=== PATIENT | male | born 1970 | race Hispanic/Latino ===

== ENCOUNTER 2019-05-14 22:45 | Emergency (ER) | payer OTHER ==
[~2019-05-14] VITALS: Ht 167.6 cm; Wt 89.4 kg
[~2019-05-14 22:45] MED LIST: ACET-685 PO; ASPI-484 PO; BACL10TA PO; CEPH-350 PO; DOCU100T6 PO; GABA300C10 PO; GLIP10TA13 PO; GLIP5TAB22 PO; HYDR-3101 PO; HYDR50CA PO; PANT40TA5 PO; SITA1TAB7 PO; SULF1TAB24 PO
[2019-05-14 23:06] VITALS: BP 121/70
[2019-05-14 23:09] VITALS: BP 121/70
--- NOTE | 2019-05-14 23:13 | ER.PDOC ---
General Chief Complaint: Extremities Stated Complaint: LEG PAIN Time seen by MD: 22:50 Source: patient, family Exam Limitations: language barrier History of Present Illness Initial Comments patient has a history of cellulitis in past and noticed some redness on the rle for the last two hours, he came to er because he thinks he has cellulitis again and wanted to come in quickly. no fever or chills, no trauma, patient is a diabetic. Timing/Duration: 1-3 hours Severity: mild Location: RLE Identified Cause: possibly Prior symptoms/Treatment: Similar symptoms previous Allergies: Coded Allergies: No Known Allergies (Unverified , 06/26/17) Home Meds Active Scripts Sulfamethoxazole/Trimethoprim (BACTRIM DS TABLET) 1 Each Tablet, 1 EACH PO BID, #16 TABLET 0 Refills Prov:ADRIANA JOSEPH MD 01/09/18 Reported Medications Pantoprazole Sodium (PANTOPRAZOLE SODIUM) 40 Mg Tablet.dr, 1 TAB PO DAILY, #30 TAB 3 Refills 01/06/18 Aspirin (ASPIR 81) 81 Mg Tablet.dr, 1 TAB PO DAILY, #30 TAB 5 Refills 01/06/18 Docusate Sodium (STOOL SOFTENER) 100 Mg Tablet, 100 MG PO DAILY24, TABLET 01/06/18 Hydroxyzine Pamoate (VISTARIL) 50 Mg Capsule, 1 CAP PO TID, #90 CAP 2 Refills 01/06/18 Hydrocodone Bit/Acetaminophen (NORCO 7.5-325) 1 Each Tablet, 1 EACH PO Q4H PRN for PAIN, #30 TAB 01/06/18 Glipizide (GLIPIZIDE) 10 Mg Tablet, 1 TAB PO BID, #60 TAB 5 Refills 01/06/18 Gabapentin (GABAPENTIN) 300 Mg Capsule, 300 MG PO TID, CAPSULE 06/27/17 Baclofen (BACLOFEN) 10 Mg Tablet, 10 MG PO Q8H PRN for MUSCLE SPASM, TABLET 06/27/17 Past Medical History Medical History: diabetes Surgical History: knee, shoulder Social History Smoking: non-smoker Alcohol Use: none Drug Use: none Constitutional: denies fever EENTM: denies ear pain Respiratory: denies cough Cardiovascular: denies chest pain Gastrointestinal: denies abdominal pain Genitourinary: denies flank pain Musculoskeletal: denies back pain Skin: rash Psychiatric/Neurological: denies headache Endocrine: denies increased thrist Hematologic/Lymphatic: denies blood clots Physical Exam General Appearance: alert, no distress Skin: warm/dry, with erythema Location: RLE With: warmth Extremities: other EENT: eyes nml inspection Neck: trachea midline, no swelling Respiratory: no resp. distress, breath sounds nml CVS: reg. rate & rhythm, heart sounds nml Abdomen: non-tender NEURO/PSYCH: CN's nml as tested, motor nml, sensation nml Comments small patch of erythema on the rlw distal ant, area is approx 3 by 4 inches. no crepitus no fluctuance Results/Orders Results/Orders Orders - MARY CARMEN YUN MD Cbc With Auto Diff (05/14/19 23:08) Comprehensive Metabolic Panel (05/14/19 23:08) Saline Lock (05/14/19 23:08) Blood Culture (05/14/19 23:08) Xr Tib/Fib Rt (05/14/19 23:08) Clindamycin Phosphate/D5w (Cleocin 900 M (05/15/19 06:00) Clindamycin Phosphate/D5w (Cleocin 600 M (05/15/19 06:00) Clindamycin Phosphate/D5w (Cleocin 600 M (05/14/19 23:20) Vital Signs Date Time Temp Pulse Resp B/P (MAP) Pulse Ox O2 Delivery O2 Flow Rate FiO2 05/14/19 23:09 98.4 74 16 05/14/19 23:06 98.4 74 16 121/70 (87) 98 Room Air 05/14/19 23:06 98.4 74 16 98 Room Air Administered Medications Medications (Trade) Dose Ordered Sig/Fatou Route PRN Reason Start Time Stop Time Status Last Admin Dose Admin Clindamycin Phosphate 50 ml @ 50 mls/hr Q8 IV 05/15/19 06:00 06/14/19 05:59 05/14/19 23:28 50 MLS/HR Laboratory Tests Test 05/14/19 23:20 White Blood Count 9.0 10^3/uL (4.5-11.0) Red Blood Count 5.20 10^6/uL (4.50-5.90) Hemoglobin 15.2 g/dL (13.9-16.3) Hematocrit 45.3 % (37.0-53.0) Mean Corpuscular Volume 87.1 fL (78-100) Mean Corpuscular Hemoglobin 29.2 pg (26-34) Mean Corpuscular Hemoglobin Concent 33.6 g/dL (33-37) Red Cell Distribution Width 13.9 % (11.5-14.5) Platelet Count 195 10^3/uL (150-400) Mean Platelet Volume 10.7 fL (7.8-11.0) Neutrophils (%) (Auto) 50.9 % (41.0-85.0) Lymphocytes (%) (Auto) 37.8 % (24.0-44.0) Monocytes (%) (Auto) 8.0 % (5.0-12.0) Neutrophils # (Auto) 4.6 10^3/uL (1.8-7.7) Lymphocytes # (Auto) 3.4 10^3/uL (1.0-4.8) Monocytes # (Auto) 0.7 10^3/uL (0.3-0.8) Absolute Immature Granulocyte (auto 0.02 10^3 u/L (0-2) Immature Granulocytes % 0.20 % (0.00-0.50) Eosinophils % 2.7 % (0.0-5.0) Basophils % 0.4 % (0.0-0.2) H Basophils # 0.0 10^3/uL (0.0-0.1) Eosinophil Count 0.2 10^3/uL (0.0-0.2) Sodium Level 142 mmol/L (132-145) Potassium Level 4.1 mmol/L (3.6-5.2) Chloride Level 105.0 mmol/L (96-109) Carbon Dioxide Level 25.2 mmol/L (20.0-32) Anion Gap 15.9 Blood Urea Nitrogen 18 mg/dL (7-18) Creatinine 1.08 mg/dL (0.59-1.40) Estimated GFR () 88.7 (>/=60) BUN/Creatinine Ratio 16.0 Glucose Level 134 mg/dL (70-110) H Calcium Level 9.0 mg/dL (8.4-10.5) Total Bilirubin 0.3 mg/dL (0.2-1.0) Aspartate Amino Transferase (AST) 23 U/L (0-35) Alanine Aminotransferase (ALT) 23 U/L (12-78) Alkaline Phosphatase 84 U/L (50-136) Total Protein 7.3 g/dL (6.4-8.2) Albumin 3.8 g/dL (3.4-5.0) Globulin 3.5 Departure Time of Disposition: 00:05 Disposition: 01 HOME, SELF-CARE Impression: Primary Impression: Cellulitis Condition: Stable Patient Instructions: Cellulitis Referrals: PCP,UNKNOWN (PCP) PRIMARY CARE PROVIDER ADRIANA JOSEPH MD Additional Instructions: see your primary care doctor or referral doctor for evaluation and for blood culture results. Duration or Time Spent with Pa: 15 MARY CARMEN YUN MD May 14, 2019 23:13
[2019-05-14] MEDS ORDERED: CLEOCIN 600 MG-D5W-GALAXY 50 ML IV ONE (23:20)
[2019-05-14 23:27] LABS: BASOPHIL % 0.4 % (0.0-0.2); EOSINOPHIL # 0.2 10^3/uL (0.0-0.2); EOSINOPHIL % 2.7 % (0.0-5.0); HEMOGLOBIN 15.2 g/dL (13.9-16.3); LYMPHOCYTES # 3.4 10^3/uL (1.0-4.8); LYMPHOCYTES % 37.8 % (24.0-44.0); MEAN CELL HGB 29.2 pg (26-34); MEAN CELL HGB CONCENTRATION 33.6 g/dL (33-37); MEAN CORP VOLUME 87.1 fL (78-100); MEAN PLATELET VOLUME 10.7 fL (7.8-11.0); MONOCYTES # 0.7 10^3/uL (0.3-0.8); NEUTROPHIL # 4.6 10^3/uL (1.8-7.7); NEUTROPHILS % 50.9 % (41.0-85.0); RED CELL DISTRIBUTION WIDTH 13.9 % (11.5-14.5)
[2019-05-14 23:45] LABS: CARBON DIOXIDE 25.2 mmol/L (20.0-32)
--- NOTE | 2019-05-15 00:03 | DIREP ---
PROCEDURE:XRAY TIB & FIB 2 VW-RT COMPARISON:None. INDICATIONS:cellulitis of rle FINDINGS: BONES:No acute fracture. JOINTS:The knee and ankle appear intact. Mild degenerative changes of the ankle. SOFT TISSUES:Scattered surgical clips within the soft tissues along the medial aspect of the proximal calf. Apparent subcutaneous edema about the mid to distal calf. OTHER:No additional findings. CONCLUSION: 1. No acute osseous abnormality. 2. Apparent subcutaneous edema about the mid to distal calf may reflect reported cellulitis. Dictated by: Ryne Munoz M.D. On 05/15/2019 at 00:00 AM
--- NOTE | 2019-05-15 00:13 | NUR ---
IV DC'D TIP INTACT, NO BLEEDING
[2019-05-15 00:15] VITALS: BP 127/74
[2019-05-15] MEDS ORDERED: CLEOCIN 900 MG-D5W-GALAXY 50 ML IV SCH (06:00)
[2019-05-15] MEDS ORDERED: CLEOCIN 600 MG-D5W-GALAXY 50 ML IV SCH (06:00)
== END 2019-05-15 00:17 | disposition home or self-care (01) ==
LOC: ER 22:45
DX: L03.115 Cellulitis of right lower limb (principal); E11.9 Type 2 diabetes mellitus without complications; Z79.82 Long term (current) use of aspirin; Z79.84 Long term (current) use of oral hypoglycemic drugs; Z79.899 Other long term (current) drug therapy; Z79.2 Long term (current) use of antibiotics
CPT/HCPCS: 36415; 80053; 85025; 87040; 96365; 99285; 73590-RT; J3490

== ENCOUNTER 2020-02-28 03:17 | Inpatient (IN) | payer OTHER ==
[2020-02-28] VITALS (7 sets, daily range): BP systolic 100–122; BP diastolic 58–74
[~2020-02-28] VITALS: Ht 167.6 cm; Wt 96.4 kg
[~2020-02-28 03:17] MED LIST changes: -ASPI-484 PO; +ASPI-485 PO; -PANT40TA5 PO; +PANT40TA6 PO
--- NOTE | 2020-02-28 03:41 | ER.PDOC ---
General Chief Complaint: Requesting Medical Care Stated Complaint: LEG INFECTION Time seen by MD: 03:25 Source: patient Exam Limitations: language barrier History of Present Illness Initial Comments patient has had multiple infection in extremities after previous knee surgery in 2018, patient presents with redness and pain in the medical tibial area since midnight today. Timing/Duration: 4-6 hours Location: LLE Quality: painful Allergies: Coded Allergies: No Known Allergies (Unverified , 06/26/17) Home Meds Reported Medications Insuln Asp Prt/Insulin Aspart (NOVOLOG MIX 70-30 VIAL) 100 Unit/1 Ml Vial, 20 UNIT SQ BID, VIAL 02/28/20 Lisinopril (LISINOPRIL) 2.5 Mg Tablet, 1 TAB PO DAILY, #30 TAB 5 Refills 02/28/20 Pantoprazole Sodium (PANTOPRAZOLE SODIUM) 40 Mg Tablet.dr, 1 TAB PO DAILY, #30 TAB 3 Refills 01/06/18 Aspirin (ASPIR 81) 81 Mg Tablet.dr, 1 TAB PO DAILY, #30 TAB 5 Refills 01/06/18 Docusate Sodium (STOOL SOFTENER) 100 Mg Tablet, 100 MG PO DAILY24, TABLET 01/06/18 Hydrocodone Bit/Acetaminophen (NORCO 7.5-325) 1 Each Tablet, 1 EACH PO Q4H PRN for PAIN, #30 TAB 01/06/18 Gabapentin (GABAPENTIN) 300 Mg Capsule, 300 MG PO TID, CAPSULE 06/27/17 Baclofen (BACLOFEN) 10 Mg Tablet, 10 MG PO Q8H PRN for MUSCLE SPASM, TABLET 06/27/17 Discontinued Reported Medications Hydroxyzine Pamoate (VISTARIL) 50 Mg Capsule, 1 CAP PO TID, #90 CAP 2 Refills 01/06/18 Glipizide (GLIPIZIDE) 10 Mg Tablet, 1 TAB PO BID, #60 TAB 5 Refills 01/06/18 Discontinued Scripts Sulfamethoxazole/Trimethoprim (BACTRIM DS TABLET) 1 Each Tablet, 1 EACH PO BID, #16 TABLET 0 Refills Prov:ADRIANA JOSEPH MD 01/09/18 Past Medical History Medical History: diabetes Surgical History: knee, shoulder Social History Drug Use: none Constitutional: denies chills; fever Respiratory: denies cough Cardiovascular: denies chest pain Gastrointestinal: denies abdominal pain Genitourinary: denies pain Musculoskeletal: denies neck pain Skin: denies rash Physical Exam General Appearance: alert, no distress Skin: with erythema Location: LLE Character: macular With: warmth, tenderness Extremities: other EENT: eyes nml inspection Neck: trachea midline Respiratory: no resp. distress, breath sounds nml CVS: reg. rate & rhythm, heart sounds nml Abdomen: non-tender Rectal: non-tender, rectal tenderness NEURO/PSYCH: oriented x 3, CN's nml as tested, motor nml, sensation nml Comments area of erythema on the left lower extremity medial tibial area in the soft tissue that is approx 4 inches by 10 inches in size with increased warmth to the area, no crepitus or fluctuance of the area good distal pulses, calf circumference grossly symmetric. Results/Orders Results/Orders Orders - MARY CARMEN YUN MD Cbc With Auto Diff (02/28/20 03:35) Comprehensive Metabolic Panel (02/28/20 03:35) Ekg-Routine (02/28/20 03:35) Saline Lock (02/28/20 03:35) Blood Culture (02/28/20 03:35) Lactic Acid(Ml) (02/28/20 03:35) Piperacillin Sodium/Tazobactam (Zosyn 4. (02/28/20 04:00) 0.9 % Sodium Chloride (Ns 1000ml) (02/28/20 04:00) Vancomycin Hcl (Vancomycin Hcl) (02/28/20 04:00) Xr Tib/Fib Lt (02/28/20 03:35) 0.9 % Sodium Chloride (Ns 100ml) (02/28/20 03:45) 0.9 % Sodium Chloride (Ns 250ml) (02/28/20 04:25) Vancomycin Hcl (Vancomycin Hcl) (02/28/20 04:26) Vital Signs Date Time Temp Pulse Resp B/P (MAP) Pulse Ox O2 Delivery O2 Flow Rate FiO2 02/28/20 04:30 85 20 117/72 (87) 97 02/28/20 04:11 98.8 83 18 97 02/28/20 04:03 98.8 83 18 02/28/20 04:03 98.8 83 18 97 02/28/20 04:03 98.8 83 18 97 Administered Medications Medications (Trade) Dose Ordered Sig/Fatou Route PRN Reason Start Time Stop Time Status Last Admin Dose Admin Piperacillin Sod/ Tazobactam Sod 4.5 gm/Sodium Chloride 100 ml @ 100 mls/hr Q6H IV 02/28/20 04:00 03/29/20 03:59 UNV 02/28/20 04:03 100 MLS/HR Sodium Chloride 3,000 ml @ 1,500 mls/hr OT IV 02/28/20 04:00 03/29/20 03:59 UNV 02/28/20 03:45 1,500 MLS/HR Laboratory Tests Test 02/28/20 03:35 02/28/20 03:50 White Blood Count 18.7 10^3/uL (4.5-11.0) H Red Blood Count 4.82 10^6/uL (4.50-5.90) Hemoglobin 14.2 g/dL (13.9-16.3) Hematocrit 41.9 % (37.0-53.0) Mean Corpuscular Volume 86.9 fL (78-100) Mean Corpuscular Hemoglobin 29.5 pg (26-34) Mean Corpuscular Hemoglobin Concent 33.9 g/dL (33-36.5) Red Cell Distribution Width 13.1 % (11.5-14.5) Platelet Count 191 10^3/uL (150-400) Mean Platelet Volume 10.2 fL (7.8-11.0) Neutrophils (%) (Auto) 83.4 % (41.0-85.0) Lymphocytes (%) (Auto) 10.9 % (24.0-44.0) L Monocytes (%) (Auto) 5.0 % (5.0-12.0) Neutrophils # (Auto) 15.6 10^3/uL (1.8-7.7) H Lymphocytes # (Auto) 2.03 10^3/uL1 (1.0-4.8) Monocytes # (Auto) 0.9 10^3/uL (0.3-0.8) H Absolute Immature Granulocyte (auto 0.03 10^3 u/L (0-2) Absolute Eosinophils (auto) 0.1 10^3/uL (0.0-0.2) Immature Granulocytes % 0.20 % (0.00-0.50) Eosinophils % 0.3 % (0.0-5.0) Basophils % 0.2 % (0.0-0.2) Basophils # 0.0 10^3/uL (0.0-0.1) Sodium Level 136 mmol/L (132-145) Potassium Level 4.1 mmol/L (3.6-5.2) Chloride Level 102.0 mmol/L (96-109) Carbon Dioxide Level 23.7 mmol/L (20.0-32) Anion Gap 14.4 Blood Urea Nitrogen 22 mg/dL (7-18) H Creatinine 1.11 mg/dL (0.59-1.40) Estimated GFR () 85.6 (>/=60) Est GFR (CKD-EPI)(Non-Afr [place]) 70.7 (>/=60) BUN/Creatinine Ratio 19.0 Glucose Level 159 mg/dL (70-110) H Calcium Level 8.4 mg/dL (8.4-10.5) Total Bilirubin 0.4 mg/dL (0.2-1.0) Aspartate Amino Transferase (AST) 25 U/L (0-35) Alanine Aminotransferase (ALT) 26 U/L (12-78) Alkaline Phosphatase 77 U/L (50-136) Total Protein 7.4 g/dL (6.4-8.2) Albumin 3.6 g/dL (3.4-5.0) Globulin 3.8 Lactic Acid Level 1.0 mmol/L (0.5-1.9) Progress Progress discussed case with dr joseph for admission Departure Time of Disposition: 04:53 Disposition: 09 ADMITTED INPATIENT Impression: Primary Impression: Cellulitis Condition: Stable Referrals: NICOLE MENJIVAR MD (PCP) PRIMARY CARE PROVIDER Duration or Time Spent with Pa: 15 MARY CARMEN YUN MD Feb 28, 2020 03:40
[2020-02-28 03:44] LABS: BASOPHIL % 0.2 % (0.0-0.2); EOSINOPHIL # 0.1 10^3/uL (0.0-0.2); EOSINOPHIL % 0.3 % (0.0-5.0); LYMPHOCYTES # 2.03 10^3/uL1 (1.0-4.8); LYMPHOCYTES % 10.9 % (24.0-44.0); MEAN CORP HGB 29.5 pg (26-34); MONOCYTES # 0.9 10^3/uL (0.3-0.8); NEUTROPHIL # 15.6 10^3/uL (1.8-7.7); NEUTROPHILS % 83.4 % (41.0-85.0); PLATELET COUNT 191 10^3/uL (150-400); RED CELL DISTRIBUTION WIDTH 13.1 % (11.5-14.5)
[2020-02-28] MEDS ORDERED: NS 100ML 100 ML IV ONE ×2 (03:45→10:48)
--- NOTE | 2020-02-28 03:46 | PCM.EKG ---
[facility] Test Date: 2020-02-28 Test Time: 03:33:29 Pat Name: YORDAN MORE Department: Room: Gender: M Chief Digital Officer: JOSE : 1970 Requested By: GAUTAM YUN Order Number: [id number] Reading MD: Gautam Yun Measurements Intervals [place] Rate: 93 P: 39 VT: 142 QRS: -52 QRSD: 97 T: 17 QT: 327 QTc: 407 Interpretive Statements Sinus rhythm LAD, consider left anterior fascicular block Abnormal R-wave progression, late transition Baseline wander in lead(s) I,II,aVR,aVF No previous ECG available for comparison Electronically Signed On 02-28-2020 3:49:12 CDT by Gautam Yun Please click the below link to view image of tracing.
[2020-02-28] MEDS ORDERED: LISI2.5T PO (03:57)
[2020-02-28] MEDS ORDERED: INSU100V12 SQ (03:57)
[2020-02-28 03:59] LABS: CALCIUM 8.4 mg/dL (8.4-10.5); CARBON DIOXIDE 23.7 mmol/L (20.0-32)
[2020-02-28] MEDS ORDERED: NS 1000ML 3,000 ML IV SCH (04:00)
[2020-02-28] MEDS ORDERED: VANCOMYCIN HCL 1 GM in NS 250ML 250 ML IV ONE (04:00)
[2020-02-28] MEDS: HNS 1000ML/KCL 20MEQ 1,000 ML IV SCH ×2 (04:00→10:53)
[2020-02-28] MEDS: ZOSYN 4.5 GM 4.5 GM in NS 100ML 100 ML IV SCH ×4 (04:03→21:56)
--- NOTE | 2020-02-28 04:19 | DIREP ---
PROCEDURE:XRAY TIB & FIB 2 VW-LT COMPARISON:[facility], CR, XRAY TIB & FIB 2 VW-RT, 05/14/2019, 11:21 PM. INDICATIONS:cellulitis left lower extremity FINDINGS: BONES:Normal. JOINTS:Knee arthroplasty. No definite loosening. SOFT TISSUES:Moderate pretibial soft tissue swelling. Metallic skin clips medially possibly related to previous vascular surgery. OTHER:No additional findings. CONCLUSION: 1. Moderate pretibial soft tissue swelling. Findings are consistent with cellulitis. No definite mass is identified. 2. Knee arthroplasty. There is sclerosis and some deformity of the medial tibial plateau which could be related to an old healed fracture. No definite acute bony abnormalities are identified. Dictated by: Junior Hernandez M.D. on 02/28/2020 at 04:14 AM
[2020-02-28] MEDS ORDERED: NS 250ML 250 ML IV ONE (04:25)
[2020-02-28] MEDS ORDERED: VANCOMYCIN HCL 1 GM ONE (04:26)
--- NOTE | 2020-02-28 04:51 | NUR ---
DR JOSEPH EDP ON PHONE WITH JAKE FOR ADMISSION
--- NOTE | 2020-02-28 06:10 | NUR ---
Dr Barrow called. Pt c/o pain to Lt leg at a 9. Order received for Toradol 30mg IV OT.
[2020-02-28] MEDS ORDERED: TORADOL IV ONE (06:30)
--- NOTE | 2020-02-28 07:30 | NUR ---
ARRIVAL Pt ARRIVED TO THE ROOM IN 341 FROM ER AT 0545 PER CHARGE NURSE JOAN EL . PT SLEEPY, OPENS EYES WITH VERBAL RESPONSE, AND WENT BACK TO SLEEP. CALLED SON MARCELO OF Pt TO GET MEDICAL HIST OF Pt. INFORMED Pt TO USE CALL [facility] FOR HELP, Pt VERBALIZED UNDERSTATING.
--- NOTE | 2020-02-28 10:14 | PCM.HP ---
HISTORY & PHYSICAL HISTORY & PHYSICAL DATE: February 28, 2020 Patient is admitted as an inpatient to [facility] ADMITTING DIAGNOSES: Left lower leg cellulitis, type 2 diabetes mellitus, hypertension CHIEF COMPLAINT: My left leg is getting bad again HISTORY OF PRESENT ILLNESS: 49-year-old gentleman who reports having left lower leg redness and edema and pain started yesterday. He states that he has had this problem before about 2 years ago and had an abscess where he had to be drained in our hospital. He does report fevers and chills but no syncope and no lethargy no night sweats. He denies any trauma to his leg. He denies any recent travel and no sick contacts. He denies any chest pain/shortness of breath or abdominal issues. PAST MEDICAL HISTORY: Type 2 diabetes mellitus, hypertension PAST SURGICAL HISTORY: Knee surgery and bilateral lower leg surgery, he had an I&D by Dr. Collado in December 2017 ALLERGIES: No known drug allergies MEDICATIONS: I have reviewed his home medication list in [employer] SOCIAL HISTORY: No smoking, no illicit drugs, no alcohol reported FAMILY HISTORY: Noncontributory for this admission PHYSICAL EXAMINATION: VITAL SIGNS: Temperature 98.8, pulse 83, respirations 18, blood pressure 117/72, O2 sat 97% on room air HEENT: Oropharynx is clear, no maxillary sinus tenderness NECK: Supple, no JVD HEART: Regular rate and rhythm LUNGS: CTA bilaterally ABDOMEN: Bowel sounds present, soft abdomen EXTREMITIES: Left lower leg with a area of patchy redness in the anterior and side parts with no fluctuance. There are no open wounds. There is increased warmth in this area. LABORATORY DATA: WBC 18.7, rest of CBC is normal, chemistry panel looks okay with a glucose of 159, LFTs normal, lactic acid level 1.0 Tib-fib x-rays: Moderate pretibial soft tissue swelling noted with no fluid collection ASSESSMENT: Left lower leg cellulitis with underlying diabetes and hypertension PLAN: IV antibiotics will be started; heat and elevation will be applied; we will follow his blood sugars and vital signs in the hospital. ADRIANA JOSEPH MD Feb 28, 2020 10:14
[2020-02-28] MEDS ORDERED: DILAUDID IV ONE (10:30)
--- NOTE | 2020-02-28 13:00 | NUR ---
DISCHARGE PLAN CASE MANAGEMENT VISITED WITH PATIENT AND SPOUSE CONCERNING DISCHARGE PLAN AND NEEDS. LIVES AT HOME WITH SPOUSE. INDEPENDENT OF ADLS. 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 PT HAS WORKER'S COMP. ACCORDING TO PT HE IS CURRENTLY BEING TREATED FOR THE SAME LEG AFFECTED IN THE 2017 INCIDENT. HAS DME INCLUDING GLUCOMETER, CANE, AND FOOT SPLINT. DENIES NEED FOR HOME OXYGEN. CM EDUCATED PATIENT ON OUTPATIENT SERVICES, HOME HOME HEALTH, AND COUNSELING SERVICES. VERBALLY DENIES NEED FOR SERVICES AT THIS TIME. PCP IS DR. NICOLE MENJIVAR IN [place]. CM PROVIDED A RESOURCE LIST. DISCHARGE PLAN IS TO DISCHARGE HOME WITH SPOUSE AND CONTINUE SELF CARE. CM WILL CONTINUE TO FOLLOW FOR DISCHARGE NEEDS.
[2020-02-28] MEDS ORDERED: WATER ONE (16:56)
[2020-02-28] MEDS: VANCOMYCIN HCL 1 GM in NS 250ML 250 ML IV SCH ×2 (17:47→21:00)
--- NOTE | 2020-02-28 17:59 | NUR ---
pT requested to use his home insulin NOVOLOG 70/30, STATED TAKES 20 UNITS BID AT HOME, NOTIFIED DR JOSEPH HE AGREED THAT PT CAN USE HIS OWN NOVOLOG. Pt'S NOVOLOG IN REFRIGERATOR. WILL PASS IN REPORT.
[2020-02-29 00:17] VITALS: BP 111/72
[2020-02-29] MEDS ORDERED: ULTRAM PO PRN (00:30)
[2020-02-29] MEDS: ULTRAM PO PRN ×3 (00:39→20:15)
--- NOTE | 2020-02-29 00:45 | NUR ---
Pt self administered 70/30 20 units. Pt c/o pain to the left lower extremity. Dr Barrow ordered tramadol 50 mg every 6 hours as needed for pain. Pt has been compliant with elevating the left leg and keeping the kpad on. Will cont to monitor.
[2020-02-29 04:00] VITALS: BP 97/63
[2020-02-29] MEDS: ZOSYN 4.5 GM 4.5 GM in NS 100ML 100 ML IV SCH ×4 (05:31→21:45)
[2020-02-29] MEDS: HNS 1000ML/KCL 20MEQ 1,000 ML IV SCH ×3 (05:31→20:14)
[2020-02-29 08:27] VITALS: BP 105/66
--- NOTE | 2020-02-29 10:00 | PRM.PN ---
Subjective Subjective Date: Feb 29, 2020 Time: 09:45 Subjective Pt c/o L ankle pain only today VTE VTE Risk Total Score: 1 VTE Risk Score VTE Risk: Score 0-1 = Low Risk (Aggressive mobilization; early ambulation; no VTE prophylaxis required) Score 2: Moderate Risk (Intermittent/Pneumatic Compression Device OR Lovenox/Heparin/Coumadin) Score 3-4: High Risk (Intermittent/Pneumatic Compression Device AND Lovenox/Heparin/Coumadin) Score > or =5: Highest Risk (Intermittent/Pneumatic Compression Device AND Lovenox/Heparin/Coumadin) Antico:Hep/LMWH/Coum/Xarelto: No Mechanical device ordered: No Review of Systems Constitutional: No: Chills, Sweats, Weakness Eyes: No: Pain, Vision change, Conjunctivae inflammation ENT: No: Ear pain, Ear discharge, Nose pain, Nose discharge Respiratory: No: Cough, Dry, Shortness of breath, SOB with excertion Cardiovascular: No: Chest Pain, Palpitations, Orthopnea, Paroxysmal Noc. Dyspnea Gastrointestinal: No: Nausea, Vomiting, Abdominal Pain Genitourinary: No Dysuria, No Frequency, No Incontinence Musculoskeletal: leg pain (L ankle pain); No: neck pain, shoulder pain, arm pain, back pain Skin: No: Lesions, Jaundice, Bruising Neurological: No: Incoordination, Change in speech, Confusion, Seizures Allergies: Coded Allergies: No Known Allergies (Unverified , 06/26/17) Scheduled Aspirin (Aspir 81), 1 TAB PO DAILY, (Reported) Docusate Sodium (Stool Softener), 100 MG PO DAILY24, (Reported) Gabapentin (Gabapentin), 300 MG PO TID, (Reported) Insuln Asp Prt/Insulin Aspart (Novolog Mix 70-30 Vial), 20 UNIT SQ BID, (Reported) Lisinopril (Lisinopril), 1 TAB PO DAILY, (Reported) Pantoprazole Sodium (Pantoprazole Sodium), 1 TAB PO DAILY, (Reported) Scheduled PRN Baclofen (Baclofen), 10 MG PO Q8H PRN for MUSCLE SPASM, (Reported) Hydrocodone Bit/Acetaminophen ([place] 7.5-325), 1 EACH PO Q4H PRN for PAIN, (Reported) Discontinued Medications Glipizide (Glipizide), 1 TAB PO BID, (Reported) Discontinued Reason: No Longer Taking Hydroxyzine Pamoate (Vistaril), 1 CAP PO TID, (Reported) Discontinued Reason: No Longer Taking Sulfamethoxazole/Trimethoprim (Bactrim Ds Tablet), 1 EACH PO BID Discontinued Reason: No Longer Taking Objective Vitals and I/O Vital Sign - Last 24 Hours 02/28/20 02/28/20 02/28/20 02/28/20 10:00 14:02 16:50 20:05 Temp 98.6 97.9 98.4 Pulse 67 65 65 Resp 16 18 18 B/P (MAP) 100/58 (72) 122/67 (85) 110/70 (83) Pulse Ox 94 96 96 O2 Delivery Room Air Room Air Room Air Room Air 02/29/20 02/29/20 02/29/20 00:17 04:00 08:27 Temp 99.1 98.9 99.3 Pulse 64 64 63 Resp 20 20 17 B/P (MAP) 111/72 (85) 97/63 (74) 105/66 (79) Pulse Ox 96 94 92 O2 Delivery Room Air Room Air Room Air Intake and Output 02/29/20 07:00 Intake Total 8900 ml Output Total 3525 ml Balance 5375 ml General: Alert, Oriented X3, Cooperative, No acute distress HEENT: Atraumatic, PERRLA, EOMI, Mucous membr. moist/pink Neck: Supple, No JVD Lungs: Clear to auscultation, Normal air movement Heart: Regular rate, Normal S1, Normal S2, No murmurs Abdomen: Normal bowel sounds, Soft, No tenderness Extremities: No clubbing, No cyanosis, No edema Neuro: Normal speech, Strength at 5/5 X4 ext, Cranial nerves 3-12 NL Psych/Mental Status: Mental status NL, Mood NL All Results(Lab/Rad) Laboratory Tests Test 02/28/20 12:25 02/28/20 16:49 02/28/20 19:46 02/29/20 05:42 Bedside Glucose 153 199 252 145 Test 02/29/20 07:53 Bedside Glucose 225 Current Medications Medications (Trade) Dose Ordered Sig/Fatou Route PRN Reason Start Time Stop Time Status Last Admin Dose Admin Piperacillin Sod/ Tazobactam Sod 4.5 gm/Sodium Chloride 100 ml @ 100 mls/hr Q6H IV 02/28/20 04:00 03/29/20 03:59 02/29/20 05:31 Sodium Chloride 3,000 ml @ 1,500 mls/hr OT IV 02/28/20 04:00 03/29/20 03:59 02/28/20 03:45 Vancomycin HCl 1 gm/Sodium Chloride 250 ml @ 175 mls/hr OT ONCE IV 02/28/20 04:00 02/28/20 05:37 DC 02/28/20 05:05 Sodium Chloride 100 ml @ ud STK-MED ONCE IV 02/28/20 03:45 02/28/20 03:46 DC Sodium Chloride 250 ml @ ud STK-MED ONCE IV 02/28/20 04:25 02/28/20 04:27 DC Vancomycin HCl 1 ml @ ud STK-MED ONCE .ROUTE 02/28/20 04:26 02/28/20 04:27 DC Ketorolac Tromethamine (Toradol) 30 mg OT ONCE IV 02/28/20 06:30 02/28/20 06:45 DC 02/28/20 06:07 Vancomycin HCl 1 gm/Sodium Chloride 250 ml @ 175 mls/hr Q12HR IV 02/28/20 16:00 02/29/20 09:16 DC 02/28/20 21:00 Hydromorphone HCl (Dilaudid) 1 mg OT ONCE IV 02/28/20 10:30 02/28/20 10:31 DC 02/28/20 11:00 Potassium Chloride/Sodium Chloride 1,000 ml @ 100 mls/hr Q10H IV 02/28/20 10:30 03/29/20 10:29 02/28/20 04:00 Sodium Chloride 100 ml @ ud STK-MED ONCE IV 02/28/20 10:48 02/28/20 10:50 DC Sterile Water (Water) 1,000 ml STK-MED ONCE .ROUTE 02/28/20 16:56 02/28/20 16:58 DC Tramadol HCl (Ultram) 50 mg Q6 PRN PO PAIN 4 - 6 02/29/20 00:30 03/30/20 00:29 02/29/20 08:41 Tramadol HCl (Ultram) 50 mg Q6 PRN PO PAIN 4 - 6 02/29/20 00:30 02/29/20 00:32 DC Vancomycin HCl 1 gm/Sodium Chloride 250 ml @ 175 mls/hr Q12H IV 02/29/20 15:00 03/30/20 14:59 Course Sepsis Screening Results: Posi: NEGATIVE Sepsis Qualifier/Stage: NO DEFINITE RISK Duration or Total Time Spent w: 15 Vitals & review Data Vital Sign - Last 24 Hours 02/28/20 02/28/20 02/28/20 02/28/20 10:00 14:02 16:50 20:05 Temp 98.6 97.9 98.4 Pulse 67 65 65 Resp 16 18 18 B/P (MAP) 100/58 (72) 122/67 (85) 110/70 (83) Pulse Ox 94 96 96 O2 Delivery Room Air Room Air Room Air Room Air 02/29/20 02/29/20 02/29/20 00:17 04:00 08:27 Temp 99.1 98.9 99.3 Pulse 64 64 63 Resp 20 20 17 B/P (MAP) 111/72 (85) 97/63 (74) 105/66 (79) Pulse Ox 96 94 92 O2 Delivery Room Air Room Air Room Air Intake and Output 02/29/20 07:00 Intake Total 8900 ml Output Total 3525 ml Balance 5375 ml Laboratory Tests Test 02/28/20 03:35 02/28/20 03:50 02/28/20 08:21 02/28/20 12:25 White Blood Count 18.7 10^3/uL Red Blood Count 4.82 10^6/uL Hemoglobin 14.2 g/dL Hematocrit 41.9 % Mean Corpuscular Volume 86.9 fL Mean Corpuscular Hemoglobin 29.5 pg Mean Corpuscular Hemoglobin Concent 33.9 g/dL Red Cell Distribution Width 13.1 % Platelet Count 191 10^3/uL Mean Platelet Volume 10.2 fL Neutrophils (%) (Auto) 83.4 % Lymphocytes (%) (Auto) 10.9 % Monocytes (%) (Auto) 5.0 % Neutrophils # (Auto) 15.6 10^3/uL Lymphocytes # (Auto) 2.03 10^3/uL1 Monocytes # (Auto) 0.9 10^3/uL Absolute Immature Granulocyte (auto 0.03 10^3 u/L Absolute Eosinophils (auto) 0.1 10^3/uL Immature Granulocytes % 0.20 % Eosinophils % 0.3 % Basophils % 0.2 % Basophils # 0.0 10^3/uL Sodium Level 136 mmol/L Potassium Level 4.1 mmol/L Chloride Level 102.0 mmol/L Carbon Dioxide Level 23.7 mmol/L Anion Gap 14.4 Blood Urea Nitrogen 22 mg/dL Creatinine 1.11 mg/dL Estimated GFR () 85.6 Est GFR (CKD-EPI)(Non-Afr [place]) 70.7 BUN/Creatinine Ratio 19.0 Glucose Level 159 mg/dL Calcium Level 8.4 mg/dL Total Bilirubin 0.4 mg/dL Aspartate Amino Transf (AST/SGOT) 25 U/L Alanine Aminotransferase (ALT/SGPT) 26 U/L Alkaline Phosphatase 77 U/L Total Protein 7.4 g/dL Albumin 3.6 g/dL Globulin 3.8 Lactic Acid Level 1.0 mmol/L Bedside Glucose 127 153 Test 02/28/20 16:49 02/28/20 19:46 02/29/20 05:42 02/29/20 07:53 Bedside Glucose 199 252 145 225 Current Medications Medications (Trade) Dose Ordered Sig/Fatou PRN Reason Start Time Stop Time Status Last Admin Piperacillin Sod/ Tazobactam Sod 4.5 gm/Sodium Chloride 100 ml @ 100 mls/hr Q6H 02/28/20 04:00 03/29/20 03:59 02/29/20 05:31 Potassium Chloride/Sodium Chloride 1,000 ml @ 100 mls/hr Q10H 02/28/20 10:30 03/29/20 10:29 02/28/20 04:00 Sodium Chloride 3,000 ml @ 1,500 mls/hr OT 02/28/20 04:00 03/29/20 03:59 02/28/20 03:45 Tramadol HCl (Ultram) 50 mg Q6 PRN PAIN 4 - 6 02/29/20 00:30 03/30/20 00:29 02/29/20 08:41 Vancomycin HCl 1 gm/Sodium Chloride 250 ml @ 175 mls/hr Q12H 02/29/20 15:00 03/30/20 14:59 LEVEL 1 SEPSIS INFECTION CRITE: ABX Therapy, Cellulitis LEVEL 2-SIRS (LIST ALL THAT AP: [id number] Cardiovascular Evidence: Not Assessed or None Hematologic Evidence: None/Not assessed Hepatic Evidence: None/Not assessed Metabolic Evidence: None/Not assessed Neurological Evidence: None/Not assessed Respiratory Evidence: None/Not assessed Renal Evidence: None/Not assessed O2 Sat by Pulse Oximetry: 92 Assessment/Plan Assessment/Plan Assessment/Plan 49 yo male with L lower leg cellulitis, type 2 DM - clinically improving with his cellulitis; cont IV abx, elevation and heat - check L ankle xrays for his pain - follow sugars ADRIANA JOSEPH MD Feb 29, 2020 10:00
--- NOTE | 2020-02-29 10:32 | DIREP ---
PROCEDURE:XRAY ANKLE MIN 3VWS-LT COMPARISON:[facility], , XRAY TIB & FIB 2 VW-LT, 02/28/2020, 03:50 AM. INDICATIONS:ankle pain FINDINGS: BONES:Three views of the left ankle. No acute fracture is seen in the medial, lateral or the posterior malleolus. No joint widening is seen. A very small calcaneal spur identified. No joint effusion in the left ankle as seen on the lateral view. No evidence for a teardrop sign is seen. JOINTS:Normal. SOFT TISSUES:Normal. OTHER:No additional findings. CONCLUSION:No acute findings in the three views of the left ankle. Dictated by: Yayo Neumann MD on 02/29/2020 at 10:29 AM ECTION conclusion [email or web address] [id number]
--- NOTE | 2020-02-29 11:28 | NUR ---
Pt C/O OF PAIN IN LEFT LEG AT 7/10 IN RATING SCALE ADMINISTERED ULTRAM 50 MG PO, WILL REASSESS THE PT AGIAN.
[2020-02-29 12:05] VITALS: BP 116/72
[2020-02-29] MEDS: VANCOMYCIN HCL 1 GM in NS 250ML 250 ML IV SCH (15:04)
[2020-02-29 16:25] VITALS: BP 110/74
[2020-02-29 19:30] VITALS: BP 103/64
[2020-03-01] VITALS: BP 106/68
[2020-03-01 02:24] LABS: BASOPHIL % 0.5 % (0.0-0.2); EOSINOPHIL # 0.2 10^3/uL (0.0-0.2); EOSINOPHIL % 2.6 % (0.0-5.0); LYMPHOCYTES # 2.87 10^3/uL1 (1.0-4.8); LYMPHOCYTES % 37.3 % (24.0-44.0); MEAN CORP HGB 29.1 pg (26-34); MONOCYTES # 0.7 10^3/uL (0.3-0.8); MONOCYTES % 8.8 % (5.0-12.0); NEUTROPHIL # 3.9 10^3/uL (1.8-7.7); NEUTROPHILS % 50.5 % (41.0-85.0); PLATELET COUNT 182 10^3/uL (150-400); RED CELL DISTRIBUTION WIDTH 13.1 % (11.5-14.5)
[2020-03-01 02:36] LABS: CARBON DIOXIDE 24.6 mmol/L (20.0-32)
[2020-03-01 02:37] LABS: CALCIUM 8.6 mg/dL (8.4-10.5)
[2020-03-01] MEDS: VANCOMYCIN HCL 1 GM in NS 250ML 250 ML IV SCH ×2 (03:30→15:00)
[2020-03-01] MEDS: ZOSYN 4.5 GM 4.5 GM in NS 100ML 100 ML IV SCH ×4 (04:00→21:51)
[2020-03-01 04:30] VITALS: BP 118/84
[2020-03-01 08:00] VITALS: BP 123/81
[2020-03-01 11:30] VITALS: BP 117/77
[2020-03-01] MEDS: HNS 1000ML/KCL 20MEQ 1,000 ML IV SCH (15:00)
--- NOTE | 2020-03-01 15:27 | PRM.PN ---
Progress Note Subjective Date: Mar 01, 2020 Physician Notes: Patient is seen and examined. Complained about insomnia. Requesting for sleep aid. He will be going for wound closure today. Objective Review IO, Exams,& Results Vital Signs Date Time Temp Pulse Resp B/P (MAP) Pulse Ox O2 Delivery O2 Flow Rate FiO2 03/01/20 09:36 Room Air 03/01/20 08:00 98.4 69 18 123/81 (95) 94 Intake and Output 03/01/20 06:59 Intake Total 1800 ml Output Total 2050 ml Balance -250 ml Intake Oral 1100 ml IV Total 700 ml Output Urine Total 2050 ml # Bowel Movements 1 Laboratory Tests Test 02/28/20 16:49 02/28/20 19:46 02/29/20 05:42 02/29/20 07:53 Bedside Glucose 199 252 145 225 Test 02/29/20 11:33 02/29/20 16:21 02/29/20 20:13 03/01/20 02:17 Bedside Glucose 145 185 236 White Blood Count 7.7 10^3/uL Red Blood Count 5.01 10^6/uL Hemoglobin 14.6 g/dL Hematocrit 43.3 % Mean Corpuscular Volume 86.4 fL Mean Corpuscular Hemoglobin 29.1 pg Mean Corpuscular Hemoglobin Concent 33.7 g/dL Red Cell Distribution Width 13.1 % Platelet Count 182 10^3/uL Mean Platelet Volume 10.3 fL Neutrophils (%) (Auto) 50.5 % Lymphocytes (%) (Auto) 37.3 % Monocytes (%) (Auto) 8.8 % Neutrophils # (Auto) 3.9 10^3/uL Lymphocytes # (Auto) 2.87 10^3/uL1 Monocytes # (Auto) 0.7 10^3/uL Absolute Immature Granulocyte (auto 0.02 10^3 u/L Absolute Eosinophils (auto) 0.2 10^3/uL Immature Granulocytes % 0.30 % Eosinophils % 2.6 % Basophils % 0.5 % Basophils # 0.0 10^3/uL Erythrocyte Sedimentation Rate 31 mm/hr Sodium Level 138 mmol/L Potassium Level 3.8 mmol/L Chloride Level 105.0 mmol/L Carbon Dioxide Level 24.6 mmol/L Glucose Level 137 mg/dL Blood Urea Nitrogen 13 mg/dL Creatinine 1.08 mg/dL Calcium Level 8.6 mg/dL Anion Gap 12.2 Estimated GFR () 88.3 Est GFR (CKD-EPI)(Non-Afr [place]) 73.0 BUN/Creatinine Ratio 12.0 C-Reactive Protein 3.90 mg/dL Vancomycin Level Trough 4.5 ug/mL Test 03/01/20 11:55 03/01/20 12:27 Bedside Glucose 191 151 Current Medications Medications (Trade) Dose Ordered Sig/Fatou PRN Reason Start Time Stop Time Status Last Admin Piperacillin Sod/ Tazobactam Sod 4.5 gm/Sodium Chloride 100 ml @ 100 mls/hr Q6H 02/28/20 04:00 03/29/20 03:59 03/01/20 09:43 Potassium Chloride/Sodium Chloride 1,000 ml @ 100 mls/hr Q10H 02/28/20 10:30 03/29/20 10:29 02/29/20 20:14 Sodium Chloride 3,000 ml @ 1,500 mls/hr OT 02/28/20 04:00 03/29/20 03:59 02/28/20 03:45 Tramadol HCl (Ultram) 50 mg Q6 PRN PAIN 4 - 6 02/29/20 00:30 03/30/20 00:29 02/29/20 20:15 Vancomycin HCl 1 gm/Sodium Chloride 250 ml @ 175 mls/hr Q12H 02/29/20 15:00 03/30/20 14:59 03/01/20 03:30 Zolpidem Tartrate (Ambien) 5 mg HS PRN INSOMNIA 03/01/20 15:30 03/31/20 15:29 UNV Orders - KENNY PATIÑO MD Zolpidem Tartrate (Ambien) (03/01/20 15:30) Heart: Regular rate, Normal S1, Normal S2, No murmurs Abdomen: Normal bowel sounds, Soft, No tenderness Lungs: Clear to auscultation, Normal air movement Skin: Other Assessment & Plan: Assessment 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 Patients opted to keep all his home meds for DM Further care per clinical course KENNY PATIÑO MD Mar 01, 2020 15:27
[2020-03-01] MEDS ORDERED: AMBIEN PO PRN (15:30)
[2020-03-01 17:23] VITALS: BP 114/72
[2020-03-01] MEDS: ULTRAM PO PRN (19:10)
[2020-03-01 20:11] VITALS: BP 117/7
[2020-03-02 00:29] VITALS: BP 94/57
[2020-03-02] MEDS: HNS 1000ML/KCL 20MEQ 1,000 ML IV SCH ×2 (00:51→09:18)
[2020-03-02] MEDS: VANCOMYCIN HCL 1 GM in NS 250ML 250 ML IV SCH (03:11)
[2020-03-02] MEDS: ZOSYN 4.5 GM 4.5 GM in NS 100ML 100 ML IV SCH ×2 (05:08→09:17)
[2020-03-02 05:18] VITALS: BP 114/75
[2020-03-02] MEDS: ULTRAM PO PRN ×2 (05:21→09:26)
[2020-03-02 09:00] VITALS: BP 104/64
--- NOTE | 2020-03-02 09:00 | NUR ---
SCHEDULED MEDS GIVEN
--- NOTE | 2020-03-02 09:26 | NUR ---
MEDICATE FOR PAIN ULTRAM GIVEN. pILLOW TO ROOM AND LT LEG ELEVATED ON 2 PILLOWS AND T PUMP IN PLACE. TO LT LOWER LEG.
--- NOTE | 2020-03-02 10:00 | NUR ---
ZOSYN UP SCHEDULED.
[2020-03-02 11:30] VITALS: BP 111/77
--- NOTE | 2020-03-02 11:30 | NUR ---
BS 167 NO ACTION REQUIRED.
[2020-03-02] MEDS ORDERED: DOXY100T PO (11:53)
[2020-03-02] MEDS ORDERED: ZOLP5TAB PO (11:53)
[2020-03-02] MEDS ORDERED: CEPH-350 PO (11:55)
--- NOTE | 2020-03-02 12:00 | NUR ---
NI SERVED UP TO BEDSIDE TO USE URINAL. STATES HE IS GOING HOME TODAY.
[2020-03-02] MEDS ORDERED: VANCOMYCIN HCL 1.5 GM in NS 250ML 300 ML IV SCH (13:00)
--- NOTE | 2020-03-02 14:05 | NUR ---
discharge All discharge instructions given. Pt voices understanding. daughter here and helping him pack to go home.
--- NOTE | 2020-03-02 14:16 | NUR ---
Dismissed in W/C in stable condition.
--- NOTE | 2020-03-02 18:22 | PRM.DC ---
Subjective Subjective Date of Discharge: Mar 02, 2020 Time of Request to Discharge: 03:50 Subjective Patient is a 49y/o gentleman admitted on account of cellultis involving the left LE. patient has had recurrent infection previously. he also has hx of DM and previous Left knee fracture. . He was started on IV vancomycin and zosyn. Blood cultures were negative. Lesions improved during serial monitoring. Radiological evaluation did not demonstrate osteomyelitis nor evidence of pus collection in the soft tissue. patient is doing well. He will be d/c home on the reconciled medications. Extended abx prescribed to prevent recurrent disease. Exam Vital Signs Vital Signs Date Time Temp Pulse Resp B/P (MAP) Pulse Ox O2 Delivery O2 Flow Rate FiO2 03/02/20 11:30 98.1 96 18 111/77 (88) 96 Room Air General Appearance: Alert, Oriented X3, Cooperative, No acute distress HEENT: Atraumatic, PERRLA Respiratory: Clear to auscultation, Normal air movement Cardiovascular: Regular rate, Normal S1, Normal S2, No murmurs Abdominal: Normal bowel sounds, Soft, No tenderness Extremities: Other (Previous skin graft scar) Skin: Rash Neuro: Normal gait, Normal speech Psych/Mental Status: Mental status NL VTE VTE Risk Total Score: 1 VTE Risk Score VTE Risk: Score 0-1 = Low Risk (Aggressive mobilization; early ambulation; no VTE prophylaxis required) Score 2: Moderate Risk (Intermittent/Pneumatic Compression Device OR Lovenox/Heparin/Coumadin) Score 3-4: High Risk (Intermittent/Pneumatic Compression Device AND Lovenox/Heparin/Coumadin) Score > or =5: Highest Risk (Intermittent/Pneumatic Compression Device AND Lovenox/Heparin/Coumadin) Antico:Hep/LMWH/Coum/Xarelto: No Mechanical device ordered: No Objective Vitals and I/O Vital Sign - Last 24 Hours 03/01/20 03/01/20 03/02/20 03/02/20 20:11 21:20 00:29 05:18 Temp 98.5 98.6 98.5 Pulse 70 68 60 Resp 18 18 18 B/P (MAP) 117/7 (43) 94/57 (69) 114/75 (88) Pulse Ox 96 94 94 O2 Delivery Room Air Room Air Room Air Room Air 03/02/20 03/02/20 03/02/20 09:00 09:00 11:30 Temp 98.3 98.1 Pulse 83 96 Resp 18 18 B/P (MAP) 104/64 (77) 111/77 (88) Pulse Ox 95 96 O2 Delivery Room Air Room Air Room Air Intake and Output 03/02/20 07:00 Intake Total 1850 ml Output Total 2350 ml Balance -500 ml General: Alert, Oriented X3, Cooperative, No acute distress HEENT: Atraumatic, PERRLA, EOMI, Mucous membr. moist/pink Neck: Supple, No JVD Lungs: Clear to auscultation, Normal air movement Heart: Regular rate, Normal S1, Normal S2, No murmurs Abdomen: Normal bowel sounds, Soft, No tenderness Extremities: No clubbing, No cyanosis, No edema Skin: Other Neuro: Normal speech, Strength at 5/5 X4 ext, Cranial nerves 3-12 NL Psych/Mental Status: Mental status NL, Mood NL All Results(Lab/Rad) Laboratory Tests Test 02/28/20 12:25 02/28/20 16:49 02/28/20 19:46 02/29/20 05:42 Bedside Glucose 153 199 252 145 Test 02/29/20 07:53 Bedside Glucose 225 Current Medications Medications (Trade) Dose Ordered Sig/Fatou Route PRN Reason Start Time Stop Time Status Last Admin Dose Admin Piperacillin Sod/ Tazobactam Sod 4.5 gm/Sodium Chloride 100 ml @ 100 mls/hr Q6H IV 02/28/20 04:00 03/29/20 03:59 02/29/20 05:31 Sodium Chloride 3,000 ml @ 1,500 mls/hr OT IV 02/28/20 04:00 03/29/20 03:59 02/28/20 03:45 Vancomycin HCl 1 gm/Sodium Chloride 250 ml @ 175 mls/hr OT ONCE IV 02/28/20 04:00 02/28/20 05:37 DC 02/28/20 05:05 Sodium Chloride 100 ml @ ud STK-MED ONCE IV 02/28/20 03:45 02/28/20 03:46 DC Sodium Chloride 250 ml @ ud STK-MED ONCE IV 02/28/20 04:25 02/28/20 04:27 DC Vancomycin HCl 1 ml @ ud STK-MED ONCE .ROUTE 02/28/20 04:26 02/28/20 04:27 DC Ketorolac Tromethamine (Toradol) 30 mg OT ONCE IV 02/28/20 06:30 02/28/20 06:45 DC 02/28/20 06:07 Vancomycin HCl 1 gm/Sodium Chloride 250 ml @ 175 mls/hr Q12HR IV 02/28/20 16:00 02/29/20 09:16 DC 02/28/20 21:00 Hydromorphone HCl (Dilaudid) 1 mg OT ONCE IV 02/28/20 10:30 02/28/20 10:31 DC 02/28/20 11:00 Potassium Chloride/Sodium Chloride 1,000 ml @ 100 mls/hr Q10H IV 02/28/20 10:30 03/29/20 10:29 02/28/20 04:00 Sodium Chloride 100 ml @ ud STK-MED ONCE IV 02/28/20 10:48 02/28/20 10:50 DC Sterile Water (Water) 1,000 ml STK-MED ONCE .ROUTE 02/28/20 16:56 02/28/20 16:58 DC Tramadol HCl (Ultram) 50 mg Q6 PRN PO PAIN 4 - 6 02/29/20 00:30 03/30/20 00:29 02/29/20 08:41 Tramadol HCl (Ultram) 50 mg Q6 PRN PO PAIN 4 - 6 02/29/20 00:30 02/29/20 00:32 DC Vancomycin HCl 1 gm/Sodium Chloride 250 ml @ 175 mls/hr Q12H IV 02/29/20 15:00 03/30/20 14:59 Medication Reconciliation Scheduled Aspirin (Aspir 81), 1 TAB PO DAILY, (Reported) Cephalexin (Keflex), 500 MG PO BID Docusate Sodium (Stool Softener), 100 MG PO DAILY24, (Reported) Doxycycline Hyclate (Doxycycline Hyclate), 100 MG PO BID Gabapentin (Gabapentin), 300 MG PO TID, (Reported) Insuln Asp Prt/Insulin Aspart (Novolog Mix 70-30 Vial), 20 UNIT SQ BID, (Reported) Lisinopril (Lisinopril), 1 TAB PO DAILY, (Reported) Pantoprazole Sodium (Pantoprazole Sodium), 1 TAB PO DAILY, (Reported) Scheduled PRN Baclofen (Baclofen), 10 MG PO Q8H PRN for MUSCLE SPASM, (Reported) Hydrocodone Bit/Acetaminophen ([place] 7.5-325), 1 EACH PO Q4H PRN for PAIN, (Reported) Zolpidem Tartrate (Ambien), 5 MG PO HS PRN for INSOMNIA Discontinued Medications Glipizide (Glipizide), 1 TAB PO BID, (Reported) Discontinued Reason: No Longer Taking Hydroxyzine Pamoate (Vistaril), 1 CAP PO TID, (Reported) Discontinued Reason: No Longer Taking Sulfamethoxazole/Trimethoprim (Bactrim Ds Tablet), 1 EACH PO BID Discontinued Reason: No Longer Taking Plan Assessment LE cellulitis: recurrent DM Plan f/u with pcp within one week My Orders - KENNY PATIÑO MD Procedure Category Date Status Time Bedside Glucose LAB 03/01/20 Complete 20:34 Bedside Glucose LAB 03/02/20 Complete 06:04 Bedside Glucose LAB 03/02/20 Complete 11:21 Discharge DISCHARGE 03/02/20 Transmitted 12:02 KENNY PATIÑO MD Mar 02, 2020 18:22
== END 2020-03-02 14:16 | disposition home or self-care (01) | DRG 603 ==
LOC: ER 03:17 → MS 04:58
PROVIDERS: ADMIT Pediatrics; ATTEND Family Medicine
DX: L03.116 Cellulitis of left lower limb (principal); I10 Essential (primary) hypertension; G47.00 Insomnia, unspecified; Z79.82 Long term (current) use of aspirin; Z79.899 Other long term (current) drug therapy
CPT/HCPCS: 36415; 80048; 80053; 80202; 82948; 83605; 85025; 85651; 86140; 87040; 93005; 99285; G0378; J1170; J2543; J3370; J3490; J7030; J7050; 73590-LT; 73610-LT

== ENCOUNTER 2020-06-11 19:50 | Emergency (ER) | payer OTHER ==
[~2020-06-11] VITALS: Ht 167.6 cm; Wt 90.7 kg
[~2020-06-11 19:50] MED LIST changes: +DOXY100T PO; +INSU100V12 SQ; +LISI2.5T PO; +ZOLP5TAB PO
[2020-06-11 20:16] VITALS: BP 117/89
[2020-06-11 20:23] VITALS: BP 117/89
[2020-06-11 20:26] VITALS: BP 117/89
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
[2020-06-11 20:59] LABS: BASOPHIL % 0.1 % (0.0-0.2); EOSINOPHIL # 0.1 10^3/uL (0.0-0.2); EOSINOPHIL % 0.5 % (0.0-5.0); LYMPHOCYTES # 1.38 10^3/uL1 (1.0-4.8); LYMPHOCYTES % 9.3 % (24.0-44.0); MONOCYTES # 0.7 10^3/uL (0.3-0.8); MONOCYTES % 4.6 % (5.0-12.0); NEUTROPHIL # 12.7 10^3/uL (1.8-7.7); NEUTROPHILS % 85.3 % (41.0-85.0); PLATELET COUNT 171 10^3/uL (150-400)
[2020-06-11 21:12] LABS: CARBON DIOXIDE 28.4 mmol/L (20.0-32)
[2020-06-11] MEDS ORDERED: CLEOCIN 600 MG-D5W-GALAXY 100 ML IV ONE (21:16)
[2020-06-11] MEDS ORDERED: CLEOCIN 900 MG-D5W-GALAXY 50 ML IV SCH (22:00)
[2020-06-11] MEDS ORDERED: CLIN300C3 PO (22:14)
== END 2020-06-11 22:55 | disposition home or self-care (01) ==
LOC: ER 20:04
DX: L03.115 Cellulitis of right lower limb (principal); L03.116 Cellulitis of left lower limb; E11.9 Type 2 diabetes mellitus without complications; I10 Essential (primary) hypertension; Z79.4 Long term (current) use of insulin; Z79.82 Long term (current) use of aspirin; Z79.899 Other long term (current) drug therapy
CPT/HCPCS: 36415; 80048; 85025; 86140; 96365; 99284; J3490

== ENCOUNTER 2020-11-05 15:39 | Emergency (ER) | payer OTHER ==
[~2020-11-05] VITALS: Ht 167.6 cm; Wt 93.0 kg
[~2020-11-05 15:39] MED LIST changes: +CLIN300C3 PO
--- NOTE | 2020-11-05 15:47 | NUR ---
ARRIVAL PT ARRIVED TO ED WITH C/O PAIN AND REDNESS TO LLE BETWEEN KNEE AND ANKLE THAT STARTED TODAY. BEDSIDE MONITORS APPLIED. VITAL SIGNS STABLE. BED IN LOW LOCKED POSITION. SON AT BEDSIDE.
[2020-11-05 15:55] VITALS: BP 115/71
[2020-11-05 16:02] VITALS: BP 115/71
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
[2020-11-05 16:22] LABS: BASOPHIL % 0.4 % (0.0-0.2); EOSINOPHIL # 0.1 10^3/uL (0.0-0.2); EOSINOPHIL % 0.7 % (0.0-5.0); LYMPHOCYTES # 2.34 10^3/uL1 (1.0-4.8); LYMPHOCYTES % 21.5 % (24.0-44.0); MEAN CORP HGB 28.9 pg (26-34); MONOCYTES % 9.1 % (5.0-12.0); NEUTROPHIL # 7.4 10^3/uL (1.8-7.7); NEUTROPHILS % 68.2 % (41.0-85.0); PLATELET COUNT 185 10^3/uL (150-400); RED CELL DISTRIBUTION WIDTH 13.5 % (11.5-14.5)
[2020-11-05 16:37] LABS: CALCIUM 8.4 mg/dL (8.4-10.5); CARBON DIOXIDE 27.9 mmol/L (20.0-32)
[2020-11-05 16:49] VITALS: BP 120/69
== END 2020-11-05 16:58 | disposition home or self-care (01) ==
LOC: ER 15:39
DX: L03.116 Cellulitis of left lower limb (principal)
CPT/HCPCS: 36415; 80053; 85025; 86140; 99283

== ENCOUNTER 2020-11-06 22:18 | Emergency (ER) | payer OTHER ==
[~2020-11-06] VITALS: Ht 167.6 cm; Wt 93.0 kg
--- NOTE | 2020-11-06 22:36 | ER.PDOC ---
General Chief Complaint: Requesting Medical Care Stated Complaint: KNEE INFECTION Time seen by MD: 22:35 Source: patient Exam Limitations: no limitations History of Present Illness Initial Comments Patient reports seemingly worsening evidence of infection to the left lower extremity. He was seen and evaluated here last night for redness and tenderness to the left lower extremity. He was prescribed clindamycin which he has been taking. However today he felt like the redness was worse the tenderness was more so so he is here for reevaluation. Patient has a history of recurrent infections to this extremity secondary to a major trauma multiple years ago involved in his labor. Onset: yesterday Where: home Severity: mild, moderate Exacerbated By: walking movement Relieved By: nothing Prior symptoms/Treatment: Similar symptoms previous (many times) Allergies: Coded Allergies: No Known Allergies (Unverified , 06/26/17) Home Meds Active Scripts Clindamycin Hcl (CLEOCIN HCL) 300 Mg Capsule, 1 CAP PO TID for 10 Days, #30 CAP Prov:BLANQUITA SANTIAGO MD 06/11/20 Cephalexin (KEFLEX) 500 Mg Capsule, 500 MG PO BID for 14 Days Prov:KENNY PATIÑO MD 03/02/20 Doxycycline Hyclate (DOXYCYCLINE HYCLATE) 100 Mg Tablet, 100 MG PO BID for 14 Days Prov:KENNY PATIÑO MD 03/02/20 Zolpidem Tartrate (AMBIEN) 5 Mg Tablet, 5 MG PO HS PRN for INSOMNIA for 7 Days, #7 TAB Prov:KENNY PATIÑO MD 03/02/20 Reported Medications Insuln Asp Prt/Insulin Aspart (NOVOLOG MIX 70-30 VIAL) 100 Unit/1 Ml Vial, 20 UNIT SQ BID, VIAL 02/28/20 Lisinopril (LISINOPRIL) 2.5 Mg Tablet, 1 TAB PO DAILY, #30 TAB 5 Refills 02/28/20 Pantoprazole Sodium (PANTOPRAZOLE SODIUM) 40 Mg Tablet.dr, 1 TAB PO DAILY, #30 TAB 3 Refills 01/06/18 Aspirin (ASPIR 81) 81 Mg Tablet.dr, 1 TAB PO DAILY, #30 TAB 5 Refills 01/06/18 Docusate Sodium (STOOL SOFTENER) 100 Mg Tablet, 100 MG PO DAILY24, TABLET 01/06/18 Hydrocodone Bit/Acetaminophen (NORCO 7.5-325) 1 Each Tablet, 1 EACH PO Q4H PRN for PAIN, #30 TAB 01/06/18 Gabapentin (GABAPENTIN) 300 Mg Capsule, 300 MG PO TID, CAPSULE 06/27/17 Baclofen (BACLOFEN) 10 Mg Tablet, 10 MG PO Q8H PRN for MUSCLE SPASM, TABLET 06/27/17 Past Medical History Medical History: diabetes (uncontrolled--last A1C was >12) Surgical History: knee, shoulder, other Family History Significant Family History: no pertinent family hx Social History Smoking: non-smoker Alcohol Use: none Drug Use: none Review of Systems Constitutional: denies no symptoms reported, denies see HPI, denies chills, denies diaphoresis, denies fever, denies malaise, denies weakness, denies other EENTM: denies no symptoms reported, denies see HPI, denies eye pain, denies blurred vision, denies tearing, denies double vision, denies ear pain, denies ear discharge, denies nose pain, denies nose congestion, denies throat pain, denies throat swelling, denies mouth pain, denies mouth swelling, denies other Respiratory: denies no symptoms reported, denies see HPI, denies cough, denies orthopnea, denies shortness of breath, denies stridor, denies wheezing, denies other Cardiovascular: denies no symptoms reported, denies see HPI, denies chest pain, denies edema, denies palpitations, denies syncope, denies other Gastrointestinal: denies no symptoms reported, denies see HPI, denies abdominal pain, denies constipation, denies diarrhea, denies nausea, denies vomiting, denies other Musculoskeletal: see HPI (patient c/o redness and pain left lateral knee and anterior tibfib L without history of recent injury) Skin: see HPI All Other Systems: Reviewed and Negative Physical Exam General Appearance: Alert, No Apparent Distress Lower Extremity: tenderness, swelling (mild erythema without warmth) Joint Exam: limited ROM by pain (anterior scar c/w previous total knee replacement; scarring below knee c/w previous trauma) Vascular: no vascular compromise Neuro/Psych: sensation nml, motor nml Skin: no rash, warmth/erythema (erythema with scant warmth) Respiratory: no resp distress, breath sounds nml CVS: reg rate & rhythm, heart sounds nml Abdomen: non-tender, no organomegaly Results/Orders Results/Orders Orders - AR PIKE DO Ceftriaxone Sodium (Rocephin) (11/06/20 22:45) Ceftriaxone Sodium (Rocephin) (11/06/20 22:48) Vital Signs Date Time Temp Pulse Resp B/P (MAP) Pulse Ox O2 Delivery O2 Flow Rate FiO2 11/06/20 22:46 98.6 83 20 110/62 (78) 94 Room Air 11/06/20 22:40 98.6 83 20 110/62 (78) 94 Room Air 11/06/20 22:40 98.6 83 20 94 11/06/20 22:40 98.6 83 20 ER DEPART Departure Time of Disposition: 23:04 Disposition: 01 HOME, SELF-CARE Impression: Primary Impression: Cellulitis Additional Impressions: Recurrent infection of skin History of traumatic fracture Uncontrolled diabetes mellitus Condition: Stable Patient Instructions: Cellulitis, Diabetes, Keeping Your Heart and Blood Vessels Healthy Referrals: NICOLE MENJIVAR MD (PCP) PRIMARY CARE PROVIDER Additional Instructions: Continue clindamycin as prescribed until all gone. Follow-up with your primary care physician in 1 to 2 days for reevaluation. It is vitally important that you control your blood sugar. The bacteria that are responsible for these recurrent infections love sugar, therefore if you leave your blood sugar high the bacteria will reproduce and grow, causing worsening infection. Due to your previous trauma, it is probable that your normal anatomy has been disrupted, including blood flow to your left lower extremity. This will naturally retard the healing process. This is another good reason to maintain good control of your blood sugar. Return to the emergency department if you have worsening symptoms or any other emergent concerns. Duration or Time Spent with Pa: 25 min Problem Qualifiers Primary Impression: Cellulitis Site of cellulitis: extremity Site of cellulitis of extremity: lower ex tremity Laterality: left Qualified Codes: L03.116 - Cellulitis of left lower limb Additional Impressions: Uncontrolled diabetes mellitus Diabetes mellitus type: type 1 Glycemic state: with hyperglycemia Qualified Codes: E10.65 - Type 1 diabetes mellitus with hyperglycemia AR PIKE DO Nov 06, 2020 22:36
[2020-11-06 22:40] VITALS: BP 110/62
[2020-11-06] MEDS ORDERED: ROCEPHIN IM STA (22:45)
[2020-11-06 22:46] VITALS: BP 110/62
[2020-11-06] MEDS ORDERED: ROCEPHIN ONE (22:48)
[2020-11-06 23:15] VITALS: BP 112/97
== END 2020-11-06 23:17 | disposition home or self-care (01) ==
LOC: ER 22:18
DX: L03.116 Cellulitis of left lower limb (principal); E10.65 Type 1 diabetes mellitus with hyperglycemia; Z79.4 Long term (current) use of insulin; Z79.82 Long term (current) use of aspirin; Z79.899 Other long term (current) drug therapy
CPT/HCPCS: 96372; 99283; J0696